=== PATIENT | female | born 1945 | race Caucasian/White ===

== ENCOUNTER → 2017-11-24 | Day surgery (SDC) | payer MEDICARE, OTHER ==
[2017-11-14 12:27] LABS: BASOPHILS # (AUTO) 0.1 (0.0-0.1); EOSINOPHILS # (AUTO) 0.1 (0.0-0.4); EOSINOPHILS % 1.3 % (0.0-6.0); HEMATOCRIT 39.4 % (34.2-44.1); LYMPHOCYTES # (AUTO) 2.3 (1.0-3.2); LYMPHOCYTES % 22.9 % (18.0-39.1); MEAN CORPUSCULAR HEMOGLOBIN 29.3 pg (28-32); MEAN CORPUSCULAR VOLUME 88.9 fL (81-99); MONOCYTES # (AUTO) 0.8 (0.2-0.8); MONOCYTES % 8.1 % (4.4-11.3); NEUTROPHILS # (AUTO) 6.8 (2.1-6.9); NEUTROPHILS % 66.4 % (38.7-80.0); PLATELET COUNT 247 x10e3/uL (140-360); RED BLOOD COUNT 4.43 x10e6/uL (3.6-5.1); RED CELL DISTRIBUTION WIDTH 12.8 % (11.7-14.4)
[~2017-11-24] MED LIST: CALCIUM PO; CIPRO500 MG PO; ELLURA PO; FENTANYL CITRATE/PF 100MCG/2 ML INJ ONE; FOLIC ACID PO; HYOSCYAMINE SULFATE 0.5 MG/ML AMP ONE; MIDAZOLAM HCL 2 MG/2 ML VIAL ONE; PANTOPRAZOLE SO40 MG PO; PROPOFOL IV EMULSION 10 MG/ML 50 ML VIAL ONE; SUCRALFATE1 GM PO; VITAMIN D1000 UNI1 PO
--- OUTSIDE RECORDS SUMMARY | 2017-11-24 06:04 | XMS REPORT | Clinical Summary ---
Author Author [facility] HospitalRoomieP[facility] Address Unknown Phone Unavailable Care Team Providers Care Precipitation Equipment Tender Name Role Phone PCP Unavailable Allergies Active Allergy Reactions Severity Noted Date Comments Iodine And Iodide Rash High 06/06/2017 Containing Products Sulfa (Sulfonamide High 06/07/2017 Nausea, vomiting Antibiotics) Adhesive Tape 06/06/2017 Skin irritation Hzbzrbin-Uwwhopmiki-Vexqt Other (See Comments) 03/26/2011 Blisters yxin Benzalkonium Chloride Other (See Comments) 05/25/2017 Blisters in skin Current Medications Prescription Sig. Disp. Refills Start End Date Status Date sucralfate (CARAFATE) 1 Take 1 g by mouth 4 Active gram tablet (four) times daily. folic acid (FOLVITE) 1 MG Take 1 mg by mouth daily. Active tablet pantoprazole (PROTONIX) Take 40 mg by mouth 2 Active 40 MG tablet (two) times daily . ondansetron (ZOFRAN) 4 MG Take 1 tablet (4 mg 10 tablet 0 06/07/20 Active tablet total) by mouth 3 (three) 17 times daily as needed. CRANBERRY FRUIT EXTRACT Take 1 tablet by mouth Active (ELLURA ORAL) daily. CALCIUM CITRATE ORAL Take 500 mg by mouth 2 Active (two) times daily. ERGOCALCIFEROL, VITAMIN Take 500 mg by mouth 2 Active D2, (VITAMIN D2 ORAL) (two) times daily. ascorbic acid, vitamin C, Take 1,000 mg by mouth Active (VITAMIN C) 1000 MG daily. tablet HYPROMELLOSE (GENTEAL Apply 1 drop to eye(s) Active OPHT) daily Both eyes . carboxymethylcell-hyprome Apply 1 drop to eye(s) Active llose (GENTEAL GEL) nightly Both eyes . 0.25-0.3 % DLGlIndications: Dry Eye ciprofloxacin HCl (CIPRO) Take 250 mg by mouth Active 250 MG tablet daily For 1 month . CALCIUM CARBONATE Take by mouth. 10/20/19 Discontin (CALCIUM 500 ORAL) 18 ued cholecalciferol (VITAMIN Take 1,000 Units by mouth 10/20/19 Discontin D3) 1,000 unit tablet daily. 18 ued APPLE CIDER VINEGAR ORAL Take by mouth. 10/20/19 Discontin 18 ued nitrofurantoin Take 50 mg by mouth 4 10/20/19 Discontin (MACRODANTIN) 50 MG (four) times daily. 18 ued capsule cephalexin (KEFLEX) 500 Take 1 capsule (500 mg 21 capsule 0 06/07/20 06/14/20 MG capsule total) by mouth 3 (three) 17 17 times daily for 7 days. acetaminophen-codeine Take 1 tablet by mouth 30 tablet 0 06/07/20 (TYLENOL #3) 300-30 mg every 6 (six) hours as 17 17 per tablet needed for up to 10 days. 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 Encounters Date Type Specialty Care Team Description 10/21/2017 [facility] Beth Schaeffer MD Encounter 10/21/2017 Anesthesia Khloe Murphy Event 10/21/2017 Procedure Pass 10/21/2017 Surgery Beth Schaeffer MD STRABISMUS SURGERY,VERTICAL MUSCLE 10/19/2017 Hospital Pre-Admission Testing Encounter 06/07/2017 [facility] Pancho Gonzales, Left nasolacrimal duct Encounter obstruction (Primary Dx) 06/07/2017 Anesthesia Tejas Crenshaw Event MD Parveen 06/07/2017 Procedure Pass 06/07/2017 Surgery Pancho Gonzales DACRYOCYSTORHINOSTOMY 02/22/2017 Hospital Radiology Neville Joshua Numbness and tingling Encounter 02/22/2017 Outside Orders Neville Joshua Numbness and tingling MD (Primary Dx) 01/25/2017 Hospital Radiology Neville Joshua, Osteoarthritis of lumbar Encounter spine, unspecified spinal osteoarthritis complication status 01/25/2017 Hospital Radiology Neville Joshua Osteoarthritis of lumbar Encounter spine, unspecified spinal osteoarthritis complication status 01/25/2017 Outside Orders Tres, Neville Morgan, Osteoarthritis of lumbar MD spine, unspecified spinal osteoarthritis complication status (Primary Dx) after 11/23/2016 Social History Tobacco Use Types Packs/Day Years Used Date Never Smoker Smokeless Tobacco: Never Used Alcohol Use Drinks/Week oz/Week Comments No Sex Assigned at Date Recorded Not on file Last Filed Vital Signs Vital Sign Reading Time Taken Blood Pressure 155/71 10/21/2017 8:42 AM CDT Pulse 77 10/21/2017 8:42 AM CDT Temperature 36.3 C (97.3 F) 10/21/2017 8:06 AM CDT Respiratory Rate 13 10/21/2017 8:42 AM CDT Oxygen Saturation 100% 10/21/2017 8:42 AM CDT Inhaled Oxygen - - Concentration Weight 56.7 kg (125 lb) 10/19/2017 4:00 PM CDT Height 166.4 cm (5' 5.5") 10/19/2017 4:00 PM CDT Body Mass Index 20.48 10/19/2017 4:00 PM CDT Plan of Treatment Not on file Procedures Procedure Name Priority Date/Time Associated Diagnosis Comments STRABISMUS 10/21/2017 H50.21- HYPERTROPIA OF SURGERY,POSTERIOR 7:30 AM CDT RIGHT EYE FIXATION SUTURE Case Notes GRACE GUIDRY TO CONFIRM CORRECT CPT CODE FOR "STRABISMU S SURGERY W/ ADJUCTABLE SUTURE PLACEMENT" FROM "62017" TO "12061"VERONICA E RESCHEDULE D PER BRANDI ON 08/26/17 MOVE CASE FROM 09/02/17/TO 09/09/17RE SCHEDULED CASE FROM 09/09/17 TO 10/07/17 BREA ON @12: 58 STATED THAT 10/07/17 WAS WHERE IT SHOULD HAVE BEEN MOVED TO?/LRK. START TIME 8:30 PER BREA ON 09/01/17@1: 15VIA FAX ON 10/04/17 CASE MOVED TO 10/21/17 @ 7:30/LRK STRABISMUS 10/21/2017 H50.21- HYPERTROPIA OF SURGERY,VERTICAL MUSCLE 7:30 AM CDT RIGHT EYE Case Notes GRACE GUIDRY TO CONFIRM CORRECT CPT CODE FOR "STRABISMU S SURGERY W/ ADJUCTABLE SUTURE PLACEMENT" FROM "64196" TO "97726"VERONICA E RESCHEDULE D ELIZA PAZ ON 08/26/17 MOVE CASE FROM 09/02/17/TO 09/09/17RE SCHEDULED CASE FROM 09/09/17 TO 10/07/17 BREA ON @12: 58 STATED THAT 10/07/17 WAS WHERE IT SHOULD HAVE BEEN MOVED TO?/LRK. START TIME 8:30 PER BREA ON 09/01/17@1: 15VIA FAX ON 10/04/17 CASE MOVED TO 10/21/17 @ 7:30/LRK PROBING,NASOLACRIMAL DUCT 06/07/2017 H04.552- ACQUIRED INSERTION TUBE/ STENT 10:00 AM CLINICAL DOCUMENTATION SPECIALIST STENOSIS OF LEFT NASOLACRIMAL DUCT DACRYOCYSTORHINOSTOMY 06/07/2017 H04.552- ACQUIRED 10:00 AM CLINICAL DOCUMENTATION SPECIALIST STENOSIS OF LEFT NASOLACRIMAL DUCT after 11/23/2016 Results * POC-Glucose meter (10/21/2017 7:02 AM) Only the most recent of 2 results within the time period is included. Component Value Ref Range POC-Glucose Meter 106Comment: TESTED AT [facility] [address] 70 - 110 mg/dL [facility] [id number] Specimen Performing Laboratory [place] [address] * XR cervical spine comp with flex and ext (02/22/2017 1:22 PM) Specimen Performing Laboratory GE RIS Narrative FINAL REPORT CERVICAL SPINE 7 VIEWS HISTORY: Numbness and tingling, status post cervical spine fusion COMPARISON: No comparison cervical spine imaging FINDINGS: AP, lateral, odontoid, bilateral oblique, flexion lateral, and extension lateral radiographs of the cervical spine were obtained. Status post anterior cervical discectomy and fusion from C5-C7. Anterior plate and screw fusion hardware is present, without evidence of hardware loosening. Osseous interbody fusion has been achieved from C5-C7. Moderate disc space narrowing at C3-C4. Minimal C4 anterolisthesis at flexion and reduces at neutral and extension positioning. Multilevel uncovertebral and facet arthropathy, with moderate foraminal stenosis at C3-C4, mild to moderate right foraminal stenosis at C4-C5, mild to moderate foraminal stenosis at C5-C6, and mild foraminal stenosis at C6-C7. No atlantoaxial instability is appreciated. Signed: Beth Tamayo MD Report Verified Date/Time:02/22/2017 14:08:56 Reading Location: [facility] Radiology Reading Room Procedure Note Interface, External Ris In - 02/22/2017 2:11 PM CDT FINAL REPORT CERVICAL SPINE 7 VIEWS HISTORY: Numbness and tingling, status post cervical spine fusion COMPARISON: No comparison cervical spine imaging FINDINGS: AP, lateral, odontoid, bilateral oblique, flexion lateral, and extension lateral radiographs of the cervical spine were obtained. Status post anterior cervical discectomy and fusion from C5-C7. Anterior plate and screw fusion hardware is present, without evidence of hardware loosening. Osseous interbody fusion has been achieved from C5-C7. Moderate disc space narrowing at C3-C4. Minimal C4 anterolisthesis at flexion and reduces at neutral and extension positioning. Multilevel uncovertebral and facet arthropathy, with moderate foraminal stenosis at C3-C4, mild to moderate right foraminal stenosis at C4-C5, mild to moderate foraminal stenosis at C5-C6, and mild foraminal stenosis at C6-C7. No atlantoaxial instability is appreciated. Signed: Beth Tamayo MD Report Verified Date/Time: 02/22/2017 14:08:56 Reading Location: [facility] Radiology Reading Room * XR Pelvis 1 or 2 Views (01/25/2017 11:29 AM) Specimen Performing Laboratory GE RIS Narrative FINAL REPORT AP PELVIS HISTORY: Low back and buttock pain, lumbar spondylosis, prior lumbar surgery COMPARISON: No comparison pelvic imaging FINDINGS: No fracture or destructive bone lesion are identified in the pelvis. Mild arthrosis of the sacroiliac joints. No symphysis pubis abnormality is visualized. No joint space narrowing or osteophyte formation are visualized in the hips. There is calcification the bilateral hips suggestive of chondrocalcinosis. The right acetabular roof appears somewhat shallow, suggestive of underlying right acetabular dysplasia. There are partially imaged postoperative changes in the lumbar spine suggestive of prior posterior decompression and posterior lumbar interbody fusion. Signed: Beth Tamayo MD Report Verified Date/Time:01/25/2017 11:52:30 Reading Location: [facility] Radiology Reading Room Procedure Note Interface, External Ris In - 01/25/2017 11:54 AM CDT FINAL REPORT AP PELVIS HISTORY: Low back and buttock pain, lumbar spondylosis, prior lumbar surgery COMPARISON: No comparison pelvic imaging FINDINGS: No fracture or destructive bone lesion are identified in the pelvis. Mild arthrosis of the sacroiliac joints. No symphysis pubis abnormality is visualized. No joint space narrowing or osteophyte formation are visualized in the hips. There is calcification the bilateral hips suggestive of chondrocalcinosis. The right acetabular roof appears somewhat shallow, suggestive of underlying right acetabular dysplasia. There are partially imaged postoperative changes in the lumbar spine suggestive of prior posterior decompression and posterior lumbar interbody fusion. Signed: Beth Tamayo MD Report Verified Date/Time: 01/25/2017 11:52:30 Reading Location: [facility] Radiology Reading Room * XR lumbar spine comp with flex & ext (01/25/2017 11:29 AM) Specimen Performing Laboratory GE RIS Narrative FINAL REPORT LUMBAR SPINE 7 VIEWS HISTORY: Low back pain, lumbar spondylosis, prior lumbar spine surgery COMPARISON: No comparison lumbar spine imaging FINDINGS: AP, lateral, spot lumbosacral, bilateral oblique, flexion lateral, and extension lateral radiographs of the lumbar spine were obtained. Mild thoracolumbar dextroscoliosis with the apex at L2-L3. Status post posterior decompression from L3 through L5-S1 with posterior lumbar interbody fusion from L3-S1. Bilateral pedicle screws and posterior rods are present from L3-S1. There is mild lucency around the L3 pedicle screws, which can be a sign of loosening. There is mild ventral canal of the S1 pedicle screws. There is mild L3 retrolisthesis that does not change from neutral to flexion to extension. There is advanced disc space narrowing and degenerative endplate change at L2-L3, most pronounced anteriorly and on the left. There are left far lateral osteophytes at L2-L3. There is moderate disc space narrowing and degenerative endplate change at L1-L2. There is mild leftward subluxation of L1. There is moderate disc space narrowing and degenerative endplate change at T12-L1. There is mild leftward subluxation of T12. No lumbar compression fracture. Signed: Beth Tamayo MD Report Verified Date/Time:01/25/2017 12:06:39 Reading Location: [facility] Radiology Reading Room Procedure Note Interface, External Ris In - 01/25/2017 12:08 PM CDT FINAL REPORT LUMBAR SPINE 7 VIEWS HISTORY: Low back pain, lumbar spondylosis, prior lumbar spine surgery COMPARISON: No comparison lumbar spine imaging FINDINGS: AP, lateral, spot lumbosacral, bilateral oblique, flexion lateral, and extension lateral radiographs of the lumbar spine were obtained. Mild thoracolumbar dextroscoliosis with the apex at L2-L3. Status post posterior decompression from L3 through L5-S1 with posterior lumbar interbody fusion from L3-S1. Bilateral pedicle screws and posterior rods are present from L3-S1. There is mild lucency around the L3 pedicle screws, which can be a sign of loosening. There is mild ventral canal of the S1 pedicle screws. There is mild L3 retrolisthesis that does not change from neutral to flexion to extension. There is advanced disc space narrowing and degenerative endplate change at L2-L3, most pronounced anteriorly and on the left. There are left far lateral osteophytes at L2-L3. There is moderate disc space narrowing and degenerative endplate change at L1-L2. There is mild leftward subluxation of L1. There is moderate disc space narrowing and degenerative endplate change at T12-L1. There is mild leftward subluxation of T12. No lumbar compression fracture. Signed: Beth Tamayo MD Report Verified Date/Time: 01/25/2017 12:06:39 Reading Location: [facility] Radiology Reading Room after 11/23/2016
--- OUTSIDE RECORDS SUMMARY | 2017-11-24 06:04 | XMS REPORT | Clinical Summary ---
Author Author [facility] Address Unknown Phone Unavailable Care Team Providers Care Director Of Alumni Relations Name Role Phone Mateo Joel MD PCP Allergies Active Allergy Reactions Severity Noted Date Comments Cvpxmdxe-Ihylhshmwd-Uciuq 11/17/2015 yxin Sulfa (Sulfonamide 11/17/2015 Antibiotics) Current Medications Prescription Sig. Disp. Refills Start End Date Status Date azelaic acid (FINACEA) 15 APPLY A THIN LAYER TO THE Active % cream AFFECTED AREA(S) BY TOPICAL ROUTE 2 TIMES PER DAY pantoprazole (PROTONIX) TK 1 T PO BID Active 40 MG EC tablet sucralfate (CARAFATE) 1 TK 1 T PO TID Active gram tablet ESTRACE 0.01 % (0.1 Insert 1 Tube into the 10/28/19 Active mg/gram) vaginal cream vagina 3 (three) times a 16 week. CHOLECALCIFEROL, VITAMIN Take 1 tablet by mouth 2 Active D3, (VITAMIN D3 ORAL) (two) times a day. CA/D3/MAG Take 1 tablet by mouth 2 Active OX/ZINC/EXTERNAL RELATIONS DIRECTOR/JOSE/BOR (two) times a day. (CALCIUM 600+D3 PLUS ORAL) [id number] Chew 1 tablet once. Active oil 400-32.5 mcg-mg tablet,chewable cyanocobalamin (B-12 Take 500 mcg by mouth Active DOTS) 500 MCG tablet daily. lidocaine (XYLOCAINE) 2 % Apply topically as needed 30 mL 1 12/10/19 12/10/19 jellyIndications: (catheterization). 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 11/17/2015 Headache 11/17/2015 Monoclonal paraproteinemia 11/17/2015 Family History Medical History Relation Name Comments Cancer Brother Heart disease Father Cancer Sister Relation Name Status Comments Brother Father (Age 63) Sister Social History Tobacco Use Types Packs/Day Years Used Date Never Smoker Smokeless Tobacco: Never Used Alcohol Use Drinks/Week oz/Week Comments No Sex Assigned at Date Recorded Not on file Last Filed Vital Signs Not on file Plan of Treatment Health Maintenance Due Date Last Done Comments COLONOSCOPY 1993 MAMMOGRAM 1993 SHINGRIX VACCINE (#1) 1993 ZOSTER VACCINE 2003 PNEUMOCOCCAL 2008 POLYSACCHARIDE VACCINE AGE 65 AND OVER PNEUMOCOCCAL-13 2008 INFLUENZA VACCINE 02/15/2018 Results Not on fileafter 11/23/2016 Insurance Payer Benefit Subscriber ID Type Phone Address Plan / Group MEDICARE MEDICARE xxxxxxxxxx [place] A AND B AETNA AETNA xxxxxxxxxx HMO HMO,POS,EP O, MC/EC Home:
--- OUTSIDE RECORDS SUMMARY | 2017-11-24 06:04 | XMS REPORT ---
Author Author [facility] Address Unknown Phone Unavailable Care Team Providers Care Head Mixer Name Role Phone BETH OLIVERA Unavailable Unavailable REGAN FIGUEROA Unavailable Unavailable Problems This patient has no known problems. Allergies, Adverse Reactions, Alerts This patient has no known allergies or adverse reactions. Medications This patient has no known medications. Results Test Description Test Time Test Comments Text Results Atomic Results Result Comments POCT-GLUCOSE METER 2017-10-21 07:03:00 POC-GLUCOSE METER (BEAKER) (test [id number]=[id number]) 106 mg/dL 70-[address] [facility] [address] [address] POCT-GLUCOSE [id number] 09:11:00* Test Item Value Reference Range Comments POC-GLUCOSE METER (BEAKER) (test krlr=[id number]) 112 mg/dL 70-110 TESTED AT [facility] [address] [address]
--- NOTE | 2017-11-24 09:48 | Operative Report ---
DATE OF PROCEDURE: November 24, 2017 REFERRING PHYSICIAN: Dr. Geovany Scales PROCEDURE PERFORMED: Colonoscopy. INDICATIONS FOR COLONOSCOPY: Colorectal cancer screening. MEDICATION: Patient was done under MAC. Please see anesthesiologist's note. PROCEDURE: With the patient in the left lateral decubitus position, the flexible fiberoptic Olympus colonoscope was inserted into the rectum with ease and advanced all the way to the cecum. The scope was then withdrawn slowly. Mucosa overlying the cecum, ascending colon, transverse colon appeared to be within normal limits. A moderate amount of retained stool was in the distal descending and the sigmoid colon. The rectum was visualized, and it was grossly within normal limits. The scope was then retroflexed into the distal rectum, and small internal hemorrhoids were noted, none of which was actively bleeding. The scope was then straightened out. It was subsequently withdrawn. Patient tolerated the procedure well. IMPRESSION 1. Moderate to large amount of retained stools in the distal descending and sigmoid colon with no obvious obstructing or constricting lesions. 2. Internal hemorrhoids, none actively bleeding. PLAN: Initiate Linzess 145 mcg 1 p.o. q.a.m. a.c. Patient might benefit from a followup colonoscopy in 2 to 3 years. Job#: [id number] cc:GEOVANY SCALES MD
== END | disposition home or self-care (01) ==
LOC: OR 06:02
PROVIDERS: ATTEND Internal Medicine Gastroenterology
DX: Z12.11 Encounter for screening for malignant neoplasm of colon (principal); K59.00 Constipation, unspecified; K64.8 Other hemorrhoids; K29.70 Gastritis, unspecified, without bleeding; K21.9 Gastro-esophageal reflux disease without esophagitis; R03.0 Elevated blood-pressure reading, without diagnosis of hypertension; Z88.2 Allergy status to sulfonamides; I45.10 Unspecified right bundle-branch block; Z01.810 Encounter for preprocedural cardiovascular examination; Z01.812 Encounter for preprocedural laboratory examination
CPT/HCPCS: 36415 ×2; 82948; 85025; 93005; G0121; J1980; J2250; 45378

== ENCOUNTER → 2021-02-09 | Outpatient (CLI) | payer MEDICARE, OTHER ==
[~2021-02-09] MED LIST changes: -FENTANYL CITRATE/PF 100MCG/2 ML INJ ONE; -HYOSCYAMINE SULFATE 0.5 MG/ML AMP ONE; -MIDAZOLAM HCL 2 MG/2 ML VIAL ONE; -PROPOFOL IV EMULSION 10 MG/ML 50 ML VIAL ONE
== END ==
LOC: RAD 15:15
PROVIDERS: ATTEND Internal Medicine
DX: J40 Bronchitis, not specified as acute or chronic (principal); R09.1 Pleurisy
CPT/HCPCS: 71046

== ENCOUNTER → 2021-11-04 | Outpatient (CLI) | payer MEDICARE, OTHER ==
[2021-11-04 10:42] LABS: HEMOGLOBIN 12.7 g/dL (12.0-16.0)
[2021-11-04 10:59] LABS: INR 0.87; PROTHROMBIN TIME 12.7 seconds (11.9-14.5)
[2021-11-04 11:00] LABS: PARTIAL THROMBOPLASTIN TIME 28.5 seconds (23.8-35.5)
[2021-11-04 11:14] LABS: CREATININE, SERUM 0.72 mg/dL (0.57-1.11)
== END ==
LOC: DX 10:05
PROVIDERS: ATTEND Internal Medicine
DX: N39.0 Urinary tract infection, site not specified (principal)
CPT/HCPCS: 36415; 36569; 71045; 82565; 84520; 85014; 85049; 85610; 85730

== ENCOUNTER → 2022-08-10 | Outpatient (CLI) | payer MEDICARE, OTHER ==
[2022-08-10 15:34] LABS: CREATININE, SERUM 0.74 mg/dL (0.57-1.11)
[2022-08-10 15:37] LABS: INR 0.85; PROTHROMBIN TIME 11.8 seconds (11.9-14.5)
[2022-08-10 15:38] LABS: PARTIAL THROMBOPLASTIN TIME 27.8 seconds (23.8-35.5)
[2022-08-10 17:06] LABS: HEMOGLOBIN 12.9 g/dL (12.0-16.0)
== END ==
LOC: DX 13:35
PROVIDERS: ATTEND Internal Medicine
DX: N39.0 Urinary tract infection, site not specified (principal)
CPT/HCPCS: 36415; 36569; 71045; 82565; 84520; 85014; 85049; 85610; 85730

== ENCOUNTER → 2025-01-29 | Outpatient (REF) | payer MEDICARE, OTHER | LOC: CARD 13:29 | PROVIDERS: ATTEND Internal Medicine | DX: H34.8322 Tributary (branch) retinal vein occlusion, left eye, stable (principal) | CPT/HCPCS: 93880 ==

== ENCOUNTER 2025-03-14 18:40 | Emergency (ER) | payer MEDICARE, OTHER ==
[~2025-03-14] VITALS: Ht 165.1 cm; Wt 58.5 kg
[2025-03-14] MEDS ORDERED: HYDRALAZINE HCL 20 MG/ML VIAL ONE (21:39)
[2025-03-14] MEDS: HYDRALAZINE HCL 20 MG/ML VIAL IV STA (21:55)
[2025-03-14 21:59] VITALS: PULSE 84; RESP 16; TEMP 98.9
[2025-03-14 22:04] LABS: BASOPHILS % 1.1 % (0.0-1.0); EOSINOPHILS % 1.1 % (0.0-6.0); EST GLOMERULAR FILTRATION RATE 77.0 ML/MIN (>=60); LYMPHOCYTES % 23.2 % (18.0-39.1); MONOCYTES % 11.4 % (4.4-11.3); NEUTROPHILS % 62.9 % (38.7-80.0); RED CELL DISTRIBUTION WIDTH 13.2 % (11.7-14.4)
[2025-03-14 22:15] VITALS: BP 179/82; PULSE 84; RESP 16; TEMP 98.9; O2SAT 98
== END 2025-03-14 21:58 | disposition other institution (70) ==
LOC: ER 19:52
DX: S01.81XA Laceration without foreign body of other part of head, initial encounter (principal); W01.0XXA Fall on same level from slipping, tripping and stumbling without subsequent striking against object, initial encounter; Y93.01 Activity, walking, marching and hiking; Y92.232 Corridor of hospital as the place of occurrence of the external cause; I10 Essential (primary) hypertension
CPT/HCPCS: 36415; 70450; 72125; 80048; 82948; 85025; 99284; J0360